=== PATIENT | female | born 1935 | race Caucasian/White ===

== ENCOUNTER → 2017-07-30 | Outpatient (CLI) | payer OTHER ==
--- NOTE | ~2017-07-30 | S ---
[facility] [place] [address] SURGICAL PATH RPT PROCEDURE Name: SHAKA FERNANDEZ Room #: REG [facility]..#: [id number] Admission: 07/30/17 Date of : 35 Discharge: Report #: [id number] Path Case #: [id number] PATHOLOGY REPORT COLLECTION DATE: 07/30/2017 RECEIVED DATE: 07/30/2017 SUBMITTING PHYS: Dr. Brady Glover OTHER PHYS: SPECIMEN(S) RECEIVED: A.RLL bronch biopsy * * * * * * * * * * * * FINAL DIAGNOSIS: Lung, right lower lobe, bronchial biopsy: - Bronchial epithelium showing squamous metaplasia and focal marked atypia (please see comment). - No definite malignancy identified. - Moderate acute and chronic inflammation. COMMENT: Examination shows a small focus of bronchial epithelium with luminal mitotic figures as well as a nuclear pleomorphism. The cells; however, show squamous metaplastic features with a low nuclear to cytoplasmic ratio. There is a moderate amount of acute and chronic inflammation present surrounding this focus. Findings may be suggestive of reactive atypia. The differential diagnosis includes a neoplastic process. There is no evidence of bronchoalveolar carcinoma in this biopsy tissue. Please correlate clinically. Co-review: Dr. Chente Loredo. The concurrent cytology ([id number]) showed no malignant cells within the bronchial brushing as well as the bronchoalveolar wash. Please see separate report for details. (IUV:pit; 08/01/2017) PATHOLOGIST: Mallika Crowder M.D. REPORT ELECTRONICALLY SIGNED BY: Mallika Crowder M.D. DATE/TIME: 08/01/2017 15:08 * * * * * * * * * * * * GROSS PATHOLOGY: The specimen is received in formalin, labeled "Shaka Fernandez, bronch/RLL biopsy," and consists of multiple fragments of li-brown soft tissue measuring 1.0 x 0.5 x 0.1 cm in aggregate dimensions. They are entirely submitted in cassette A1. (SDY; 07/31/2017) [address] [address] SURGICAL PATH RPT PROCEDURE Name: SHAKA FERNANDEZ Room #: REG [facility].#: [id number] Admission: 07/30/17 Date of : 35 Discharge: Report #: [id number] Path Case #: [id number] CLINICAL HISTORY: Infiltrates INITIAL CPT CODE(S): A; 88740 Professional services performed by [facility] [address], [place] [address] Technical services performed by [facility] at [address] [place] [address], [place] [address]. [facility] [address] [place] [address] PHONE: [phone] DIRECTOR: Cecilio Leblanc M.D. * * * END OF REPORT * * *
--- NOTE | ~2017-07-30 | CNG ---
[facility] [place] [address] CYTO-NONGYN REPORT PROCEDURE Name: SHAKA FERNANDEZ Room #: REG [facility].#: [id number] Admission: 07/30/17 Date of : 35 Discharge: Report #: [id number] Path Case #: [id number] CYTOPATHOLOGY REPORT COLLECTION DATE: 07/30/2017 RECEIVED DATE: 07/30/2017 SUBMITTING PHYS: Dr. Brady Glover OTHER PHYS: CLINICAL HISTORY: Abnormal CT, Lung cancer, Infiltrates SPECIMEN(S) RECEIVED: A.Brushing, RLL B.Bronchoalveolar lavage, NOS * * * * * * * * * * * * FINAL DIAGNOSIS: A. Brushing, RLL: - No malignant cells identified. Bronchial cells, pulmonary macrophages and acute and chronic inflammatory cells identified. B. Bronchoalveolar lavage, NOS: - No malignant cells identified. Pulmonary macrophages and predominantly chronic inflammatory cells identified. COMMENT: Please see the corresponding right lower lobe bronchial biopsy ([id number]). Clinical and bronchoscopic correlation is recommended. PATHOLOGIST: Apoorva Bright M.D. REPORT ELECTRONICALLY SIGNED BY: Apoorva Bright M.D. DATE/TIME: 07/31/2017 12:30 * * * * * * * * * * * * GROSS PATHOLOGY: A. Brushing, RLL: The specimen is labeled "Shaka Fernandez" and consists of a brush tip in fixative and four fixed slides. One ThinPrep slide was prepared. B. Bronchoalveolar lavage, NOS: The specimen is submitted unfixed, labeled "Shaka Fernandez". Received by the Cytology Department is ten mL of cloudy red fluid. One ThinPrep slide was prepared. (mm 07.30.2017) PARTITION ASSEMBLER(S): MANJEET Martin(ASCP) INITIAL CPT CODE(S): A; 29535, 02938 B; 34208 [facility] [address] [address] CYTO-NONGYN REPORT PROCEDURE Name: SHAKA FERNANDEZ Room #: REG [facility]..#: [id number] Admission: 07/30/17 Date of : 35 Discharge: Report #: [id number] Path Case #: [id number] , [place] [address] [facility] at [address] [place] [address]., [address], [place] [address]. [address], [address] [place] [address] PHONE: [phone] DIRECTOR: Cecilio Leblanc M.D. * * * END OF REPORT * * *
--- NOTE | ~2017-07-30 | P ---
[facility] [place] [address] PROCEDURE REPORT Name: SHAKA FERNANDEZ Room #: REG [facility].#: [id number] Admission: 07/30/17 Attend Phys: Brady Glover MD Discharge: Date of : 35 Report #: [id number] THIS REPORT FOR: //name// CC: FAM unknown Brady Larson MD DATE OF SERVICE: 07/30/2017 PROCEDURE: Fiberoptic bronchoscopy with transbronchial biopsies of right lower lobe under fluoroscopic guidance as well as cytologic brushings in right lower lobe with fluoroscopic guidance and bronchial lavage in the right lower lobe. INDICATION: Persistent pulmonary infiltrates, ASA classification class 3. PROCEDURE NOTATION: After discussing risks, benefits of planned procedure with the patient, she desired to proceed. After obtaining informed consent, she was brought to laborer pipeline 3 where she was placed on continuous cardiopulmonary monitoring and supplemental oxygen. She was also given 4% lidocaine nebulized to anesthetize the upper respiratory tract. Once complete, the patient received conscious sedation, a total 4 mg of Versed and 37.5 mcg of fentanyl were titrated during the procedure to provide adequate sedation. Once sedate, the bronchoscope was passed through an oral biteblock until the vocal cords had been visualized. The vocal cords moved appropriately both before and after procedure. 1% lidocaine was instilled in the vocal cord to provide topical anesthesia. Bronchoscope was then passed in the trachea, 1% lidocaine was instilled in the tracheobronchial tree bilaterally for topical anesthesia. Once complete, airways were surveyed. FINDINGS: Mainstem, lobar, segmental and subsegmental bronchi were explored. No significant anatomic variation except for some minor variation in the right upper lobe where there was only two segmental bronchi noted. Bronchoscope was then passed into the right lower lobe where fluoroscopy was utilized to obtain cytologic brushings and then transbronchial biopsies. Bronchial lavage was performed in this area at the end of procedure. The patient tolerated the procedure, no noted complications. Estimated blood loss about 10 mL. IMPRESSION: Persistent pulmonary infiltrates, status post bronchoscopy with bronchoalveolar lavage, cytologic brushings and fluoroscopic-guided transbronchial biopsies. PLAN: 1. Follow-up chest x-ray post-procedure. [facility] [address] [place] [address] PROCEDURE REPORT Name: SHAKA FERNANDEZ Room #: REG [facility]#: [id number] Admission: 07/30/17 Attend Phys: Brady Glover MD Discharge: Date of : 35 Report #: [id number] 2. Await microbiologic and cytologic tests and histopathology. Follow up with Dr. Larson as planned. <ELECTRONICALLY SIGNED> By: Brady Glover MD 08/02/17 1317 [id number] [id number] Brady Glover MD /nt
== END | disposition home or self-care (01) ==
LOC: CATH 07:41
DX: J98.4 Other disorders of lung (principal)